=== PATIENT | male | born 1980 | race Caucasian/White ===

== ENCOUNTER 2016-07-19 11:20 | Emergency (ER) | payer OTHER | END 2016-07-19 12:45 | disposition home or self-care (01) | LOC: FER 11:20 | DX: S40.861A Insect bite (nonvenomous) of right upper arm, initial encounter (principal); F17.200 Nicotine dependence, unspecified, uncomplicated; Z87.19 Personal history of other diseases of the digestive system; W57.XXXA Bitten or stung by nonvenomous insect and other nonvenomous arthropods, initial encounter | CPT/HCPCS: 99282 ==